=== PATIENT | female | born 1990 | race African-American/Black ===

== ENCOUNTER 2018-06-07 15:12 | Inpatient (IN) | payer OTHER ==
[2018-06-07 15:44] LABS: ADD MAN DIFF? NO
[2018-06-07 15:47] LABS: WHITE BLOOD COUNT 12.7 10^3/ul (4.8-10.8)
[2018-06-07 15:47] LABS: ABNORMAL IP MESSAGE 1; BASOPHILS % 0.2 % (0.0-2.0); HEMATOCRIT 29.7 % (37.0-47.0); HEMOGLOBIN 9.2 g/dl (12.0-16.0); LYMPHOCYTES # 0.5 10^3/ul (0.8-2.9); LYMPHOCYTES % 4.2 % (15.0-51.0); MEAN CORPUSCULAR HEMOGLOBIN 27.3 pg (29.0-33.0); MEAN CORPUSCULAR VOLUME 88.1 fl (82.0-101.0); MEAN PLATELET VOLUME 10.9 fl (7.4-10.4); MONOCYTE # 0.3 10^3/ul (0.3-0.9); MONOCYTES % 2.2 % (0.0-11.0); NEUTROPHIL # 11.8 10^3/ul (1.6-7.5); NEUTROPHILS % 92.8 % (39.0-77.0); PLATELET COUNT 422 10^3/UL (140-415); RED BLOOD COUNT 3.37 10^6/ul (4.20-5.40); RED CELL DISTRIBUTION WIDTH 13.2 % (11.5-14.5)
[2018-06-07 15:48] LABS: POSITIVE DIFF @See below
[2018-06-07] MEDS: SOD CHLORIDE 0.9% 1,000 ML IV ×4 (15:49→18:53)
[2018-06-07 15:54] LABS: AADO2 Venous 72.2 mmHg; MODE ROOM AIR; MetHgb Venous 0.3 %; Sample Type Blood venous; Site OTHER; Venous COHb 0.3 %; Venous Fraction OxyHgb 67.9 %; Venous Oxygen Sat 68.3 mmHG (55.0-75.0); Venous Total Hemglobin 8.9 g/dl
[2018-06-07] MEDS: ONDANSETRON 4 MG INJ IV (15:57)
[2018-06-07 16:17] LABS: ANION GAP 20 (5-13); BLOOD UREA NITROGEN 45 mg/dl (7-20); CALCIUM 8.9 mg/dl (8.4-10.2); CARBON DIOXIDE 12 mmol/L (21-31); CHLORIDE 94 mmol/L (97-110); CREATININE 2.57 mg/dl (0.44-1.00); Estimated GFR 22 mL/min (>60); MAGNESIUM 2.2 mg/dl (1.7-2.5); PHOSPHORUS 6.9 mg/dl (2.5-4.9); SODIUM 126 mmol/L (135-144)
[2018-06-07 16:19] LABS: GLUCOSE 873 mg/dl (70-220)
[2018-06-07 16:20] LABS: POTASSIUM 6.4 mmol/L (3.5-5.1)
[2018-06-07] MEDS ORDERED: NS + KCL 40 MEQ 1,000 ML IV ×2 (16:33→18:08)
[2018-06-07] MEDS ORDERED: D10/0.45% NACL + KCL 40 MEQ 1,000 ML IV ×2 (16:33→18:08)
[2018-06-07] MEDS ORDERED: DEXTROSE 10 %/0.45 % NACL 1,000 ML IV ×2 (16:33→18:08)
[2018-06-07] MEDS: NA BICARBONATE 8.4% 50 ML SYG IV (16:58)
[2018-06-07] MEDS: ACETAMINOPHEN 325 MG TAB PO (16:59)
[2018-06-07] MEDS: CA CHLORIDE 10% 10 ML SYRINGE IV (16:59)
[2018-06-07] MEDS ORDERED: DEXTROSE 50% 50 ML SYRINGE IV ×4 (17:00→18:30)
[2018-06-07 17:10] LABS: HEMOGLOBIN A1C 8.9 % (0-5.9)
[2018-06-07] MEDS: SODIUM POLYSTYRENE 15 GM KIT (POWDER + SORBITOL) PO (17:11)
[2018-06-07] MEDS: ALBUTEROL 0.5% (NEB) 2.5 MG/0.5 ML AMP INH (17:15)
[2018-06-07] MEDS: INSULIN REGULAR, HUMAN 100 UNIT in SOD CHLORIDE 0.9% 99 ML IV (17:36)
[2018-06-07 17:47] LABS: AADO2 Venous 54.8 mmHg; MODE ROOM AIR; MetHgb Venous 0.3 %; Sample Type Blood venous; Site OTHER; Venous COHb 0.4 %; Venous Fraction OxyHgb 83.6 %; Venous Oxygen Sat 84.2 mmHG (55.0-75.0); Venous Total Hemglobin 9.7 g/dl
[2018-06-07] MEDS ORDERED: SOD CHLORIDE 0.9% 1,000 ML IV (18:08)
[2018-06-07] MEDS ORDERED: D10/0.45% NACL + KCL 30 MEQ 1,000 ML IV (18:08)
[2018-06-07] MEDS ORDERED: NS + KCL 30 MEQ 1,000 ML IV (18:08)
[2018-06-07] MEDS: ACCU-CHEK XX ×6 (18:30→23:30)
[2018-06-07 19:50] LABS: ANION GAP 22 (5-13); BLOOD UREA NITROGEN 46 mg/dl (7-20); CALCIUM 8.9 mg/dl (8.4-10.2); CHLORIDE 105 mmol/L (97-110); CREATININE 2.72 mg/dl (0.44-1.00); Estimated GFR 25 mL/min (>60); MAGNESIUM 2.2 mg/dl (1.7-2.5); PHOSPHORUS 7.4 mg/dl (2.5-4.9); POTASSIUM 4.4 mmol/L (3.5-5.1); SODIUM 134 mmol/L (135-144)
[2018-06-07 20:14] LABS: CARBON DIOXIDE 7 mmol/L (21-31); GLUCOSE 713 mg/dl (70-220)
[2018-06-07] MEDS: ACETAMINOPHEN 1000MG/100ML IV 100 ML IVPB (22:09)
[2018-06-07] MEDS ORDERED: LORAZEPAM 2 MG INJ (22:23)
[2018-06-07] MEDS: LORAZEPAM 2 MG INJ IV (22:33)
[2018-06-07 23:18] LABS: ANION GAP 23 (5-13); BLOOD UREA NITROGEN 45 mg/dl (7-20); CALCIUM 8.9 mg/dl (8.4-10.2); CHLORIDE 103 mmol/L (97-110); CREATININE 3.32 mg/dl (0.44-1.00); Estimated GFR 20 mL/min (>60); PHOSPHORUS 7.2 mg/dl (2.5-4.9); POTASSIUM 4.5 mmol/L (3.5-5.1); SODIUM 135 mmol/L (135-144)
[2018-06-07 23:23] LABS: CARBON DIOXIDE 9 mmol/L (21-31)
[2018-06-07 23:24] LABS: GLUCOSE 508 mg/dl (70-220)
[2018-06-08] MEDS: ACCU-CHEK XX ×13 (00:30→12:30)
[2018-06-08] MEDS: INSULIN REGULAR, HUMAN 100 UNIT in SOD CHLORIDE 0.9% 99 ML IV (00:39)
[2018-06-08 01:51] LABS: ANION GAP 15 (5-13); BLOOD UREA NITROGEN 49 mg/dl (7-20); CALCIUM 8.8 mg/dl (8.4-10.2); CARBON DIOXIDE 13 mmol/L (21-31); CHLORIDE 108 mmol/L (97-110); CREATININE 3.06 mg/dl (0.44-1.00); Estimated GFR 22 mL/min (>60); MAGNESIUM 1.9 mg/dl (1.7-2.5); PHOSPHORUS 4.7 mg/dl (2.5-4.9); POTASSIUM 4.6 mmol/L (3.5-5.1); SODIUM 136 mmol/L (135-144)
[2018-06-08 01:58] LABS: GLUCOSE 406 mg/dl (70-220)
[2018-06-08] MEDS: D10/0.45% NACL + KCL 30 MEQ 1,000 ML IV ×2 (04:15→10:11)
[2018-06-08] MEDS: NS + KCL 30 MEQ 1,000 ML IV (04:48)
[2018-06-08 05:20] LABS: MODE ROOM AIR; MetHgb Venous 0.3 %; Sample Type Blood venous; Site VENOUS LINE; Venous COHb 0.3 %; Venous Fraction OxyHgb 74.7 %; Venous Oxygen Sat 75.2 mmHG (55.0-75.0); Venous Total Hemglobin 11.9 g/dl
[2018-06-08 06:01] LABS: ANION GAP 11 (5-13); BLOOD UREA NITROGEN 48 mg/dl (7-20); CALCIUM 8.9 mg/dl (8.4-10.2); CARBON DIOXIDE 18 mmol/L (21-31); CHLORIDE 109 mmol/L (97-110); CREATININE 2.85 mg/dl (0.44-1.00); Estimated GFR 24 mL/min (>60); GLUCOSE 179 mg/dl (70-220); MAGNESIUM 1.9 mg/dl (1.7-2.5); PHOSPHORUS 3.2 mg/dl (2.5-4.9); POTASSIUM 4.4 mmol/L (3.5-5.1); SODIUM 138 mmol/L (135-144)
[2018-06-08] MEDS ORDERED: DEXTROSE 5% 1,000 ML IV (06:30)
[2018-06-08] MEDS: INSULIN ASPART [NOVOLOG] 3 ML PEN SC ×3 (07:35→12:15)
[2018-06-08] MEDS: INSULIN GLARGINE [LANTus] (100 UNITS/ML) SYG SC (08:50)
[2018-06-08] MEDS ORDERED: INSULIN REGULAR, HUMAN 100 UNIT in SOD CHLORIDE 0.9% 99 ML IV (09:30)
[2018-06-08] MEDS: CEPASTAT LOZENGE MT ×3 (09:45→13:46)
== END 2018-06-08 14:10 | disposition home or self-care (01) | DRG 637 ==
LOC: ICU 17:54 → E/R 15:12
PROVIDERS: Internal Medicine
DX: E10.10 Type 1 diabetes mellitus with ketoacidosis without coma (principal); N17.0 Acute kidney failure with tubular necrosis; E87.1 Hypo-osmolality and hyponatremia; I10 Essential (primary) hypertension; E86.1 Hypovolemia; Z79.4 Long term (current) use of insulin; Z96.41 Presence of insulin pump (external) (internal); E10.21 Type 1 diabetes mellitus with diabetic nephropathy; E78.5 Hyperlipidemia, unspecified
CPT/HCPCS: 36415; 71045; 80048; 82803; 82962; 83036; 83735; 84100; 85025; 94664; 96361; 96365; 96375; 99291-25